=== PATIENT | female | born 1965 | race Caucasian/White ===

== ENCOUNTER 2023-05-03 05:50 | Day surgery (SDC) | payer BC ==
[2023-05-03] MEDS ORDERED: Dextrose 5%-0.45% NaCl 1,000 ML IV SCH (06:00)
[2023-05-03] MEDS ORDERED: Midazolam 1 MG/ML 2 ML SDV ONE (06:12)
[2023-05-03] MEDS ORDERED: Midazolam 1 MG/ML 2 ML SDV IV ONE ×7 (06:12→07:06)
[2023-05-03] MEDS ORDERED: fentaNYL 100 MCG/2 ML SDV IV ONE ×6 (06:12→07:10)
[2023-05-03] MEDS ORDERED: fentaNYL 100 MCG/2 ML SDV ONE (06:12)
== END 2023-05-03 08:41 | disposition home or self-care (01) ==
LOC: DL.ENDO 05:50
PROVIDERS: ATTEND Internal Medicine Gastroenterology
DX: Z12.11 Encounter for screening for malignant neoplasm of colon (principal); K57.30 Diverticulosis of large intestine without perforation or abscess without bleeding; K21.9 Gastro-esophageal reflux disease without esophagitis; C22.0 Liver cell carcinoma; E06.3 Autoimmune thyroiditis; E66.09 Other obesity due to excess calories; Z68.35 Body mass index [BMI] 35.0-35.9, adult; F10.20 Alcohol dependence, uncomplicated; M06.9 Rheumatoid arthritis, unspecified; F43.0 Acute stress reaction; R73.9 Hyperglycemia, unspecified
CPT/HCPCS: J2250; J3010; J7042